=== PATIENT | male | born 1980 | race Caucasian/White ===

== ENCOUNTER 2018-10-11 22:01 | Emergency (ER) | payer SELFPAY ==
[2018-10-11 22:11] VITALS: BP 160/113; TEMP 98.2; O2SAT 97
[2018-10-11] MEDS ORDERED: SULFA/TRIMETH 800/160 (DS) TAB 1 EA TAB PO ONE (22:14)
--- NOTE | 2018-10-11 22:17 | ED.PDOC ---
History of Present Illness - General Chief Complaint: Skin/Abrasion/Tear Time Seen by Provider: 10/11/18 22:14 Source: patient - History of Present Illness Initial Comments: Pt has skin lesion behind L ear x 1 week that he has drained at home, but is not healing Timing/Duration: week Severity: mild Location: scalp Improving Factors: nothing Worsening Factors: nothing Associated Symptoms: swelling/mass/lumps Allergies/Adverse Reactions: Allergies NO KNOWN ALLERGY Allergy (Verified 06/16/15 19:38) Home Medications: Ambulatory Orders Sulfamethoxazole-Trimethoprim [Bactrim Ds 800-160 mg] 1 tab PO BID #14 tab 10/11/18 Review of Systems - Review of Systems Constitutional: States: no symptoms reported EENTM: States: see HPI. Denies: ear pain, ear discharge, throat pain Respiratory: States: no symptoms reported Cardiology: States: no symptoms reported Skin: States: see HPI, other - Has small abscess behing L ear, fluctuant, tender, red, 2 cm Past Medical History (General) - Patient Medical History Hx Diabetes: No - Social History Hx Tobacco Use: Yes Hx Alcohol Use: No Hx Substance Use: No Hx Substance Use Treatment: No Hx Depression: No - Female History Patient : No Family Medical History - Family History Mother Family History: Unknown Living Status: Unknown Physical Exam - Physical Exam General Appearance: Agitated, Alert Eyes, Ears, Nose, Throat Exam: PERRL/EOMI Neck: other - abscess behind L ear Skin Exam: warm/dry, normal color Skin Problem Location: neck - behing l ear Skin Character: abscess Lymphatic: no adenopathy Procedures - Incision and Drainage #1 Procedure and Prep: pus drained, other - hibiclens used, no packing or irrgation Blade Size: 11 Departure - Departure Clinical Impression: Cutaneous abscess of neck Disposition: Discharge to Home or Self Care Departure Forms: ED Discharge - Pt. Copy, Patient Portal Self Enrollment Prescriptions: Sulfamethoxazole-Trimethoprim [Bactrim Ds 800-160 mg] 1 tab PO BID #14 tab Home Medications: Ambulatory Orders Sulfamethoxazole-Trimethoprim [Bactrim Ds 800-160 mg] 1 tab PO BID #14 tab 10/11/18
[2018-10-11] MEDS ORDERED: CHLORHEXIDINE GLUCONATE 4 % 15 ML UD TOP ONE (22:28)
== END 2018-10-11 22:40 | disposition home or self-care (01) ==
LOC: ER 22:01
DX: L02.11 Cutaneous abscess of neck (principal); Z87.891 Personal history of nicotine dependence